=== PATIENT | male | born 1990 | race Caucasian/White ===

== ENCOUNTER 2021-01-19 05:54 | Inpatient (IN) ==
[2021-01-19] MEDS ORDERED: 0.9 % SODIUM CHLORIDE 1,000 ML IV ONE ×2 (06:00→10:23)
[2021-01-19] MEDS ORDERED: DILTIAZEM 25 MG/5 ML VIAL IV ONE ×2 (06:08→06:09)
[2021-01-19] MEDS ORDERED: DILTIAZEM 125 MG in DEXTROSE 5% IN WATER 100 ML IV SCH ×2 (06:15)
[2021-01-19] MEDS ORDERED: NALOXONE HCL 0.4 MG/ML VIAL IV ONE ×2 (06:26→06:47)
[2021-01-19] MEDS ORDERED: methylPREDNISolone SOD SUCC 125 MG/2 ML VIAL IV ONE (06:33)
[2021-01-19] MEDS ORDERED: IPRATROPIUM/ALBUTEROL 3 ML AMPUL.NEB NEB ONE ×2 (06:33→06:34)
--- NOTE | 2021-01-19 06:33 | Emergency Department Note ---
Overdose HPI General Chief Complaint: Overdose Stated Complaint: Overdose, SOB Time Seen by Provider: 01/19/21 06:00 Source: patient and EMS Mode of arrival: EMS Limitations: no limitations History of Present Illness HPI Narrative: Narrative: Presents to T2 via EMS for evaluation of altered mental status and suspected overdose. It is reported by EMS that the patient has a history of opiate abuse in the past. EMS reports that the patient had been reportedly clean for 7 years but his suspected that he may have been using recently. The patient was found with a decreased level of consciousness, agonal respirations facedown in vomit. The patient's rolled the patient over and started chest compressions and called EMS. On EMS arrival the patient was noted to be having agonal respirations. He was assisted via BVM and the patient was given intranasal Narcan and had rapid improvement in mental status. The patient was also reported to be in atrial fibrillation on the monitor. EMS reports they found to vials which appeared to have some residual substance in them. On arrival to the emergency department the patient is awake and alert. He does not provide any significant additional history. Denies chest pain or shortness of breath. He does report a history of asthma. Related Data Home Medications Medication Instructions Recorded Confirmed No Known Home Meds 06/11/20 07/16/20 Allergies Allergy/AdvReac Type Severity Reaction Status Date / Time iodine [IODINE] Allergy Unknown RASH Verified 01/19/21 06:04 penicillin G [PENICILLIN G] Allergy Unknown UNKNOWN Verified 01/19/21 06:04 Review of Systems ROS ROS Narrative: Narrative: Limitations: ROS unobtainable due to patients medical condition [facility], [facility] Narrative Patient History Narrative: Narrative: Medical/Surgical/Family History All Active Problems (Updated 01/19/21 @ 07:03 by Keven Preciado MD) URI, acute (Acute) Tonsillitis (Acute) Nausea & vomiting (Acute) Coffee ground emesis (Acute) Methadone overdose (Acute) Atrial fibrillation with rapid ventricular response (Acute) Hypoxia (Acute) Acute diarrhea (Acute) Upper respiratory infection (Acute) Sprain of foot, left (Acute) Sprain of ankle, left (Acute) Nausea, vomiting and diarrhea (Acute) Epigastric abdominal pain (Acute) Bilateral conjunctivitis (Acute) Viral syndrome (Acute) Social History Smoking Status: Current every day smoker Alcohol Intake Frequency: holiday/special occasion only Substance Use: does not use Exam Narrative Narrative: Narrative: General Limitations: no limitations General appearance: Present alert and in distress Head Head: Present atraumatic, normocephalic and normal inspection Eye Eye: Present normal appearance and EOMI; Absent conjunctival injection ENT ENT: Present normal exam and mucous membranes moist Neck Neck: Present normal inspection and trachea midline Respiratory Respiratory: Present normal lung sounds bilaterally; Absent respiratory distress Cardiovascular Cardiovascular: Present tachycardia, irregular rhythm and normal heart sounds Adbominal Abdominal: Present soft; Absent distention, tenderness, guarding and rebound Extremities Extremities: Present normal inspection, normal capillary refill (Moderate delayed capillary refill) and cyanosis; Absent tenderness Back Back: Present normal inspection; Absent tenderness Neurological Neurological: Present alert, oriented X3 and CN II-XII intact; Absent motor sensory deficit Psychiatric Psychiatric: Present normal affect and normal mood Skin Skin: Present warm (WNL) and dry; Absent rash Course Vital Signs Vital signs: Vital Signs Temperature 95.6 F L 01/19/21 05:55 Pulse Rate 178 H 01/19/21 05:55 Respiratory Rate 22 01/19/21 05:55 Blood Pressure 130/110 01/19/21 05:55 Pulse Oximetry (%) 56 L 01/19/21 05:55 Temperature 95.6 F L 01/19/21 05:55 Pulse Rate 124 H 01/19/21 06:22 Respiratory Rate 15 01/19/21 06:22 Blood Pressure 133/73 01/19/21 06:22 Pulse Oximetry (%) 95 01/19/21 06:16 MDM MDM Narrative Medical decision making narrative: Narrative: Lab Data Lab results reviewed: Yes I reviewed the patient's lab results. Radiology Data Radiology results reviewed: Yes I reviewed the patient's radiology results. EKG Data EKG #1: EKG attestation: Yes I reviewed and interpreted this EKG., Yes There are no EKG findings of acute coronary syndrome and Yes This EKG will be read by medical assistant prn EKG results narrative: Atrial fibrillation with a rapid ventricular response, rate 159, normal ST segments, no ectopy, normal QRS Rhythm Strip Data Rhythm Strip Rate: 155 Interpretation: Narrow complex tachycardia, atrial fibrillation Pulse Oximetry Data Pulse Ox %: 56 Interpretation: Hypoxia CC TIME Critical Care Time Critical Care Time: Yes Total Critical Care Time: 60 Attestation: Approximately 60 minutes of critical care time was used in order to assess and manage the high probability of imminent or life threatening deterioration which required my highest level of preparedness and interventions with frequent patient assessments. This time is excluding time spent on separately billable procedures. On arrival the patient was awake and alert, he was conversive. The patient was noted to be in a narrow complex tachycardia with irregularity consistent with atrial fibrillation. EKG was obtained and confirmed this. The patient was also noted to have poor peripheral circulation and initial pulse oximetry was 56%. The patient was placed on a nonrebreather and his pulse oximetry did improve somewhat. The patient's atrial fibrillation was treated with a single dose of IV Cardizem 20 mg. The patient immediately converted to a normal sinus rhythm in the 80s to 90s. A portable chest x-ray was obtained. There is no focal consolidation. There is increased lung markings which may represent pulmonary edema versus technique. ABG was obtained which did show a pH of 7.18, PCO2 of 58 and a PO2 of 52. Blood sugar was obtained and was noted to be 260. The patient was given an additional dose of Narcan 2 mg IV. His pulse oximetry did improve to the mid 90s. Shortly after the patient did report he was having increased difficulty breathing. On repeat exam the patient is noted to be having mild to moderate wheezing diffusely. The patient does have a history of asthma and was given a single dose of DuoNeb treatment and Solu-Medrol. Patient's pulse oximetry did drop into the mid 80s while on the nebulized treatment and simple facemask. And he was again placed on the nonrebreather. He was given an additional dose of Narcan 2 mg IV. It is at this time the patient admits to using 60 mg of crushed methadone which he snorted about midnight last night. At 0700 I have passed the patient's care to the oncoming physician. They will continue to manage the patient, follow-up on diagnostic studies ordered and disposition the patient. Discharge Plan Patient/Caregiver Discharge Instructions Pt seen by POWER TRUCK DRIVER/PA only: No Clinical Impression: Methadone overdose, Atrial fibrillation with rapid ventricular response, Hypoxia Patient Disposition: Still a Patient Follow up with: No,PCP [Primary Care Provider] - Prescriptions: No Action No Known Home Meds RF: 0
--- NOTE | 2021-01-19 07:33 | Emergency Department Note ---
Overdose HPI General Chief Complaint: Overdose Stated Complaint: Overdose, SOB Time Seen by Provider: 01/19/21 06:00 Source: patient and EMS Mode of arrival: EMS Limitations: no limitations History of Present Illness HPI Narrative: Narrative: Related Data Home Medications Medication Instructions Recorded Confirmed No Known Home Meds 06/11/20 07/16/20 Allergies Allergy/AdvReac Type Severity Reaction Status Date / Time iodine [IODINE] Allergy Unknown RASH Verified 01/19/21 06:04 penicillin G [PENICILLIN G] Allergy Unknown UNKNOWN Verified 01/19/21 06:04 Review of Systems ROS ROS Narrative: Narrative: PFSH Narrative Patient History Narrative: Narrative: Medical/Surgical/Family History All Active Problems (Updated 01/19/21 @ 08:33 by Kaden Srivastava DO) URI, acute (Acute) Tonsillitis (Acute) Nausea & vomiting (Acute) Coffee ground emesis (Acute) Methadone overdose (Acute) Atrial fibrillation with rapid ventricular response (Acute) Hypoxia (Acute) Acute non-cardiogenic pulmonary edema (Acute) Acute diarrhea (Acute) Upper respiratory infection (Acute) Sprain of foot, left (Acute) Sprain of ankle, left (Acute) Nausea, vomiting and diarrhea (Acute) Epigastric abdominal pain (Acute) Bilateral conjunctivitis (Acute) Viral syndrome (Acute) Social History Smoking Status: Current every day smoker Alcohol Intake Frequency: holiday/special occasion only Substance Use: does not use Exam Narrative Narrative: Narrative: General Limitations: no limitations Course Course Course Narrative: I assumed care from Dr. Preciado at the change of shift. We evaluate the patient together at bedside at 7 AM. He is tachypneic and complaining of shortness of breath while on a nonrebreather. He is awake and alert and answers questions appropriately Reevaluation(s) Reevaluation #1: I discussed the need for improvement in oxygen saturation with the patient and he is agreeable with the plan to attempt proning. He was having difficulty emptying his bladder so Tineo catheter has been inserted with good flow of clear yellow urine. With proning initially, his heart rate has decreased and his oxygen saturation is steadily improving we will continue to monitor closely. I did discuss his clinical situation and the possible need for intubation or transfer with his Ilda, who will come to the hospital Time: 07:33 Vital Signs Vital signs: Vital Signs Temperature 95.6 F L 01/19/21 05:55 Pulse Rate 178 H 01/19/21 05:55 Respiratory Rate 22 01/19/21 05:55 Blood Pressure 130/110 01/19/21 05:55 Pulse Oximetry (%) 56 L 01/19/21 05:55 Temperature 95.6 F L 01/19/21 05:55 Pulse Rate 110 H 01/19/21 08:16 Respiratory Rate 15 01/19/21 08:16 Blood Pressure 125/85 01/19/21 08:16 Pulse Oximetry (%) 93 01/19/21 08:16 MDM MDM Narrative Medical decision making narrative: Patient continued to improve with proning and was gradually titrated down to 5 L of oxygen via nasal cannula. I reassessed him several times. He is remained awake and alert throughout his emergency department stay and notes that his shortness of breath has significantly improve d while lying prone. I reviewed his labs. He does have a elevated lactate and significant leukocytosis. Patient says he was completely in his usual state of health yesterday and had no preceding symptoms such as fever abdominal pain vomiting or diarrhea. His confirms this. Given that and the clinical context in which he presented I do not think his leukocytosis and lactic acidosis are due to severe sepsis. Out of an abundance of caution that there may be occult bacterial infection contributing to his leukocytosis I did give him IV Rocephin. I am not giving him 30 mL/kg gram of crystalloids because he is in pulmonary edema following the Narcan reversal and I think this would be de trimental to his health. I discussed my clinical impression with the patient and his and they are agreeable with the plan for admission. I discussed the patient's history examination and diagnostic findings with Dr. Madrigal, who agrees with the plan of care and accepts admission. Critical care time I provided at least 45 minutes of critical care time. This was separate from any separately billable procedures. The patient was given supplemental oxygen to treat his hypoxemic respiratory failure. He was repositioned to improve his ventilation and carefully reassessed several times throughout his emergency department stay to assess for the need for escalating therapies including possib le intubation or noninvasive positive pressure ventilation. He was given IV antibiotics due to his significant leukocytosis to treat possible occult bacteremia. The patient was closely monitored for response to treatment and stability of vital signs throughout their emergency department stay. Lab Data Lab results reviewed: Yes I reviewed the patient's lab results. Result diagrams: 01/19/21 06:30 01/19/21 06:30 Labs: Lab Results 01/19/21 01/19/21 01/19/21 Range/Units 06:26 06:30 06:30 WBC 38.9 H* (4.5-11.0) K/mcL RBC 4.70 (4.50-5.90) M/mcL Hgb 13.5 (13.5-16.5) g/dL Hct 45.4 (41.0-55.0) % MCV 96.6 (80.0-100.0) fL MCH 28.7 (26.0-34.0) pg MCHC 29.7 L (31.0-36.0) g/dL RDW 13.1 (11.5-14.5) % Plt Count 392 (140-440) K/mcL MPV 9.6 (7.4-10.4) fL Neut % (Auto) 93.6 H (38.0-78.0) % Lymph % (Auto) 3.7 L (15.0-49.0) % Lake % (Auto) 1.9 (1.0-12.0) % Eos % (Auto) 0.6 (0.0-7.0) % Baso % (Auto) 0.2 (0.0-2.0) % Lymph # (Auto) 1.44 L (1.50-4.80) K/mcL Lake # (Auto) 0.74 (0.10-0.90) K/mcL Eos # (Auto) 0.22 (0.00-0.70) K/mcL Baso # (Auto) 0.09 (0.00-0.20) K/mcL Absolute Neutrophils 36.39 H (1.80-8.00) K/mcL VBG Lactic Acid (0.5-2.0) mmol/L Sodium 137 (133-145) mmol/L Potassium 4.5 (3.3-5.1) mmol/L Chloride 100 (96-108) mmol/L Carbon Dioxide 23 (22-30) mmol/L Anion Gap 14.0 (8.0-16.0) BUN 17 (6-20) mg/dL Creatinine 1.1 (0.7-1.2) mg/dL GFR Calculation 90 Glucose 166 H (70-105) mg/dL Calcium 8.8 (8.6-10.4) mg/dL Total Bilirubin 0.2 (0.1-1.0) mg/dL AST 44 H (<40) U/L ALT 29 (<40) U/L Alkaline Phosphatase 53 (39-117) U/L Troponin T (<0.03) ng/mL NT-Pro-B Natriuret Pep (<125.0) pg/mL Total Protein 7.3 (5.9-8.4) gm/dL Albumin 4.4 (3.2-5.2) gm/dL Globulin 2.9 (2.2-3.7) gm/dL Albumin/Globulin Ratio 1.5 (1.0-2.3) Urine Color Yellow Urine Appearance Hazy A (Clear) Urine pH 5.0 (5.0-9.0) Ur Specific [place] 1.020 (1.000-1.035) Urine Protein 100 A (Negative) mg/dL Urine Glucose (UA) >=500 A (Negative) mg/dL Urine Ketones Negative (Negative) mg/dL Urine Occult Blood Negative (Negative) mg/dL Urine Nitrate Negative (Negative) Urine Bilirubin Negative (Negative) mg/dL Urine Urobilinogen Negative mg/dL Ur Leukocyte Esterase Negative (Negative) /ug Urine RBC 4 H (0-3) /hpf Urine WBC 10 H (0-4) /hpf Ur Squamous Epith Cells < 1 (0-4) /hpf Ur Transition Epith Cell < 1 (0-2) /hpf Urine Bacteria None (0) /hpf Hyaline Casts 20 H (0-2) /lph Granular Casts 16 H (0-0) /lph Urine Mucus Few A (None) /hpf Ur Culture Indicated? yes Salicylates mg/dL Urine Opiates Screen Ur Opiates Confirm Ur Oxycodone Screen Urine Methadone Screen Acetaminophen ug/mL Ur Barbiturates Screen Ur Barbiturate Confirm Ur Phencyclidine Scrn Urine PCP Confirm Ur Amphetamines Screen U Amphetamines Confirm U Benzodiazepines Scrn U Benzodiazepine Confm Urine Cocaine Screen Urine Cocaine Confirm U Marijuana (THC) Screen Ethyl Alcohol (<0.010) gm/dL 01/19/21 01/19/21 01/19/21 Range/Units 06:30 06:30 06:30 WBC (4.5-11.0) K/mcL RBC (4.50-5.90) M/mcL Hgb (13.5-16.5) g/dL Hct (41.0-55.0) % MCV (80.0-100.0) fL MCH (26.0-34.0) pg MCHC (31.0-36.0) g/dL RDW (11.5-14.5) % Plt Count (140-440) K/mcL MPV (7.4-10.4) fL Neut % (Auto) (38.0-78.0) % Lymph % (Auto) (15.0-49.0) % Lake % (Auto) (1.0-12.0) % Eos % (Auto) (0.0-7.0) % Baso % (Auto) (0.0-2.0) % Lymph # (Auto) (1.50-4.80) K/mcL Lake # (Auto) (0.10-0.90) K/mcL Eos # (Auto) (0.00-0.70) K/mcL Baso # (Auto) (0.00-0.20) K/mcL Absolute Neutrophils (1.80-8.00) K/mcL VBG Lactic Acid 4.1 H* (0.5-2.0) mmol/L Sodium (133-145) mmol/L Potassium (3.3-5.1) mmol/L Chloride (96-108) mmol/L Carbon Dioxide (22-30) mmol/L Anion Gap (8.0-16.0) BUN (6-20) mg/dL Creatinine (0.7-1.2) mg/dL GFR Calculation Glucose (70-105) mg/dL Calcium (8.6-10.4) mg/dL Total Bilirubin (0.1-1.0) mg/dL AST (<40) U/L ALT (<40) U/L Alkaline Phosphatase (39-117) U/L Troponin T 0.02 (<0.03) ng/mL NT-Pro-B Natriuret Pep (<125.0) pg/mL Total Protein (5.9-8.4) gm/dL Albumin (3.2-5.2) gm/dL Globulin (2.2-3.7) gm/dL Albumin/Globulin Ratio (1.0-2.3) Urine Color Urine Appearance (Clear) Urine pH (5.0-9.0) Ur Specific [place] (1.000-1.035) Urine Protein (Negative) mg/dL Urine Glucose (UA) (Negative) mg/dL Urine Ketones (Negative) mg/dL Urine Occult Blood (Negative) mg/dL Urine Nitrate (Negative) Urine Bilirubin (Negative) mg/dL Urine Urobilinogen mg/dL Ur Leukocyte Esterase (Negative) /ug Urine RBC (0-3) /hpf Urine WBC (0-4) /hpf Ur Squamous Epith Cells (0-4) /hpf Ur Transition Epith Cell (0-2) /hpf Urine Bacteria (0) /hpf Hyaline Casts (0-2) /lph Granular Casts (0-0) /lph Urine Mucus (None) /hpf Ur Culture Indicated? Salicylates mg/dL Urine Opiates Screen None detected Ur Opiates Confirm TNP Ur Oxycodone Screen None detected Urine Methadone Screen Suspect positive A Acetaminophen ug/mL Ur Barbiturates Screen None detected Ur Barbiturate Confirm TNP Ur Phencyclidine Scrn None detected Urine PCP Confirm TNP Ur Amphetamines Screen None detected U Amphetamines Confirm TNP U Benzodiazepines Scrn None detected U Benzodiazepine Confm TNP Urine Cocaine Screen None detected Urine Cocaine Confirm TNP U Marijuana (THC) Screen Suspect positive A Ethyl Alcohol (<0.010) gm/dL 01/19/21 01/19/21 01/19/21 Range/Units 06:30 06:30 06:30 WBC (4.5-11.0) K/mcL RBC (4.50-5.90) M/mcL Hgb (13.5-16.5) g/dL Hct (41.0-55.0) % MCV (80.0-100.0) fL MCH (26.0-34.0) pg MCHC (31.0-36.0) g/dL RDW (11.5-14.5) % Plt Count (140-440) K/mcL MPV (7.4-10.4) fL Neut % (Auto) (38.0-78.0) % Lymph % (Auto) (15.0-49.0) % Lake % (Auto) (1.0-12.0) % Eos % (Auto) (0.0-7.0) % Baso % (Auto) (0.0-2.0) % Lymph # (Auto) (1.50-4.80) K/mcL Lake # (Auto) (0.10-0.90) K/mcL Eos # (Auto) (0.00-0.70) K/mcL Baso # (Auto) (0.00-0.20) K/mcL Absolute Neutrophils (1.80-8.00) K/mcL VBG Lactic Acid (0.5-2.0) mmol/L Sodium (133-145) mmol/L Potassium (3.3-5.1) mmol/L Chloride (96-108) mmol/L Carbon Dioxide (22-30) mmol/L Anion Gap (8.0-16.0) BUN (6-20) mg/dL Creatinine (0.7-1.2) mg/dL GFR Calculation Glucose (70-105) mg/dL Calcium (8.6-10.4) mg/dL Total Bilirubin (0.1-1.0) mg/dL AST (<40) U/L ALT (<40) U/L Alkaline Phosphatase (39-117) U/L Troponin T (<0.03) ng/mL NT-Pro-B Natriuret Pep 54.5 (<125.0) pg/mL Total Protein (5.9-8.4) gm/dL Albumin (3.2-5.2) gm/dL Globulin (2.2-3.7) gm/dL Albumin/Globulin Ratio (1.0-2.3) Urine Color Urine Appearance (Clear) Urine pH (5.0-9.0) Ur Specific [place] (1.000-1.035) Urine Protein (Negative) mg/dL Urine Glucose (UA) (Negative) mg/dL Urine Ketones (Negative) mg/dL Urine Occult Blood (Negative) mg/dL Urine Nitrate (Negative) Urine Bilirubin (Negative) mg/dL Urine Urobilinogen mg/dL Ur Leukocyte Esterase (Negative) /ug Urine RBC (0-3) /hpf Urine WBC (0-4) /hpf Ur Squamous Epith Cells (0-4) /hpf Ur Transition Epith Cell (0-2) /hpf Urine Bacteria (0) /hpf Hyaline Casts (0-2) /lph Granular Casts (0-0) /lph Urine Mucus (None) /hpf Ur Culture Indicated? Salicylates < 0.3 mg/dL Urine Opiates Screen Ur Opiates Confirm Ur Oxycodone Screen Urine Methadone Screen Acetaminophen < 5.0 ug/mL Ur Barbiturates Screen Ur Barbiturate Confirm Ur Phencyclidine Scrn Urine PCP Confirm Ur Amphetamines Screen U Amphetamines Confirm U Benzodiazepines Scrn U Benzodiazepine Confm Urine Cocaine Screen Urine Cocaine Confirm U Marijuana (THC) Screen Ethyl Alcohol < 0.010 (<0.010) gm/dL Discharge Plan Patient/Caregiver Discharge Instructions Pt seen by PIPE COVERER HELPER/PA only: No Clinical Impression: Methadone overdose, Atrial fibrillation with rapid ventricular response, Hypoxia, Acute non-cardiogenic pulmonary edema Patient Disposition: Xfer As Inpt ([facility]) Follow up with: No,PCP [Primary Care Provider] - Prescriptions: No Action No Known Home Meds RF: 0
[2021-01-19 07:44] LABS: Appearance,Urine HAZY (Clear); Bilirubin,Urine Negative (Negative); Color,Urine YELLOW; Culture Indicated,Urine yes; Glucose,Urine (UA) >=500 mg/dL (Negative); Ketones,Urine Negative (Negative); Leukocyte Esterase,Urine Negative /ug (Negative); Mucus,Urine FEW /hpf; Nitrate,Urine Negative (Negative); Protein,Urine 100 mg/dL (Negative); Urine Blood Negative (Negative); Urine Granular Cast 16 /lph (0-0); Urine Hyaline Cast 20 /lph (0-2); Urine RBC 4 /hpf (0-3); Urine Squamous Epithelial Cell < 1 /hpf (0-4); Urine Transitional Epi Cells < 1 /hpf (0-2); Urine WBC 10 /hpf (0-4); Urobilinogen,Urine Negative
[2021-01-19 07:46] LABS: Acetaminophen < 5.0 ug/mL; Salicylate < 0.3 mg/dL
[2021-01-19 07:47] LABS: ALT/SGPT 29 U/L (<40); AST/SGOT 44 U/L (<40); Albumin 4.4 gm/dL (3.2-5.2); Albumin/Globulin Ratio 1.5 (1.0-2.3); Alkaline Phosphatase 53 U/L (39-117); Bilirubin,Total 0.2 mg/dL (0.1-1.0); Blood Urea Nitrogen 17 mg/dL (6-20); Calcium 8.8 mg/dL (8.6-10.4); Carbon Dioxide 23 mmol/L (22-30); Chloride 100 mmol/L (96-108); Globulin 2.9 gm/dL (2.2-3.7); Glomerular Filtration Rate 90; Glucose 166 mg/dL (70-105)
[2021-01-19 07:52] LABS: Alcohol, Blood < 10.0 mg/dL; Alcohol,Blood < 0.010 gm/dL (<0.010); Basophils # (Auto) 0.09 K/mcL (0.00-0.20); Basophils % (Auto) 0.2 % (0.0-2.0); Eosinophils # (Auto) 0.22 K/mcL (0.00-0.70); Eosinophils % (Auto) 0.6 % (0.0-7.0); Hematocrit 45.4 % (41.0-55.0); Hemoglobin 13.5 g/dL (13.5-16.5); Lymphocytes # (Auto) 1.44 K/mcL (1.50-4.80); Lymphocytes % (Auto) 3.7 % (15.0-49.0); Mean Cell Volume 96.6 fL (80.0-100.0); Mean Corpuscular HGB Conc 29.7 g/dL (31.0-36.0); Mean Platelet Volume 9.6 fL (7.4-10.4); Monocytes # (Auto) 0.74 K/mcL (0.10-0.90); Monocytes % (Auto) 1.9 % (1.0-12.0); Neutrophils % (Auto) 93.6 % (38.0-78.0); Platelet Count 392 K/mcL (140-440); Red Cell Distribution Width 13.1 % (11.5-14.5); WBC 38.9 K/mcL (4.5-11.0)
[2021-01-19] MEDS ORDERED: cefTRIAXone 1 GM VIAL IV ONE (07:58)
[2021-01-19 08:01] LABS: Amphetamine Screen,Urine None detected; Barbiturate Screen,Urine None detected; Benzodiazepines Screen,Urine None detected; Cannabinoid Screen,Urine Suspect Positive; Cocaine Screen,Urine None detected; Opiate Screen,Urine None detected; Oxycodone, Urine Screen None detected; Phencyclidine Screen,Urine None detected
--- NOTE | 2021-01-19 08:24 | XRay Report ---
HISTORY: Methadone overdose, hypoxia, atrial fibrillation, shortness of breath FINDINGS: The lungs are clear. There is no pleural effusion or adenopathy. The heart size is normal and there is no congestive heart failure. There are overlying artifacts. IMPRESSION: No acute abnormality Interpreted and Authenticated by: Ludwin Palacios 01/19/21
--- NOTE | 2021-01-19 08:31 | Internal Med History&Physical ---
HPI History of Present Illness Patient information: Note initiated : 01/19/21 at 8:31 am Service Date, if different from initiated Date: [] Patient: Malcolm Ruiz a 30 y/o M admitted on for Overdose, SOB. Chief Complaint: Found unresponsive secondary to overdose History of present illness: Mr. Ruiz is a 30 year old M who lives with his and was discovered by his on the floor nearly unresponsive and agonal breathing with suspected opioid overdose. EMS was summoned and patient was started on Narcan with rapid improvement in mental status, he was brought into the ER and was in A. fib RVR responded to Cardizem. After initial resuscitation with crystalloids hospital service was consulted. Patient was noted to be profoundly hypoxic requiring 8 to 10 L oxygen/white count over 38,000. At the time of my evaluation patient is lethargic and drowsy. Currently on 8 L oxygen mask. In sinus rhythm. Was able to answer most of the question endorses to snorting 16 tabs of methadone. He remains tachycardic around 117. Repeat chest imaging shows severe bilateral aspiration pneumonitis. Antibiotics initiated, cultures drawn. Patient critically ill and admitted to ICU. No family numbers present Patient denies chest pain, fever but endorses diaphoresis/lightheadedness and shortness of breath Review of systems 10 point review system was performed and is negative except for ones discussed above PFSH PFSH All Active Problems (Updated 01/19/21 @ 08:33 by Kaden Srivastava DO) URI, acute (Acute) Tonsillitis (Acute) Nausea & vomiting (Acute) Coffee ground emesis (Acute) Methadone overdose (Acute) Atrial fibrillation with rapid ventricular response (Acute) Hypoxia (Acute) Acute non-cardiogenic pulmonary edema (Acute) Acute diarrhea (Acute) Upper respiratory infection (Acute) Sprain of foot, left (Acute) Sprain of ankle, left (Acute) Nausea, vomiting and diarrhea (Acute) Epigastric abdominal pain (Acute) Bilateral conjunctivitis (Acute) Viral syndrome (Acute) Social History alcohol intake frequency: holiday/special occasion only substance use type: does not use MEDS/ALLERGIES Home Medications and Allergies Home Medications Medication Instructions Recorded Confirmed Type No Known Home Meds 06/11/20 01/19/21 History Allergies Allergy/AdvReac Type Severity Reaction Status Date / Time iodine [IODINE] Allergy Mild RASH Verified 01/19/21 10:14 penicillin G [PENICILLIN G] Allergy Unknown Unknown Verified 01/19/21 10:13 EXAM Constitutional Vitals: Temp Pulse Resp BP Pulse Ox 95.6 F L 110 H 15 125/85 93 01/19/21 05:55 01/19/21 08:16 01/19/21 08:16 01/19/21 08:16 01/19/21 08:16 Drowsy lethargic and short of breath Head normocephalic Oral cavity moist No ear or nose discharge Eye no subconjunctival pallor, movement symmetrical S1-S2 occasionally irregular, tachycardia Labored breathing on 8 to 10 L oxygen Nondistended nontender abdomen Lower extremity no cyanosis clubbing or joint swelling Skin no suspicious lesion Psych anxious but no hallucination Neuro normal higher function on limited neuro exam DATA Data Completed and Pending Labs: Labs from last 24 hours 01/19/21 01/19/21 01/19/21 06:30 06:30 06:30 WBC RBC Hgb Hct MCV MCH MCHC RDW Plt Count MPV Neut % (Auto) Lymph % (Auto) Cross % (Auto) Eos % (Auto) Baso % (Auto) Lymph # (Auto) [place] # (Auto) Eos # (Auto) Baso # (Auto) Absolute Neutrophils VBG Lactic Acid Sodium Potassium Chloride Carbon Dioxide Anion Gap BUN Creatinine GFR Calculation Glucose Calcium Total Bilirubin AST ALT Alkaline Phosphatase Troponin T NT-Pro-B Natriuret Pep 54.5 Total Protein Albumin Globulin Albumin/Globulin Ratio Urine Color Urine Appearance Urine pH Ur Specific [place] Urine Protein Urine Glucose (UA) Urine Ketones Urine Occult Blood Urine Nitrate Urine Bilirubin Urine Urobilinogen Ur Leukocyte Esterase Urine RBC Urine WBC Ur Squamous Epith Cells Ur Transition Epith Cell Urine Bacteria Hyaline Casts Granular Casts Urine Mucus Ur Culture Indicated? Salicylates < 0.3 Urine Opiates Screen Ur Opiates Confirm Ur Oxycodone Screen Urine Methadone Screen Ur Methadone Confirm Acetaminophen < 5.0 Ur Barbiturates Screen Ur Barbiturate Confirm Ur Phencyclidine Scrn Urine PCP Confirm Ur Amphetamines Screen U Amphetamines Confirm U Benzodiazepines Scrn U Benzodiazepine Confm Urine Cocaine Screen Urine Cocaine Confirm U Cannabinoids Confirm U Marijuana (THC) Screen Ethyl Alcohol < 0.010 01/19/21 01/19/21 01/19/21 06:30 06:30 06:30 WBC RBC Hgb Hct MCV MCH MCHC RDW Plt Count MPV Neut % (Auto) Lymph % (Auto) Cross % (Auto) Eos % (Auto) Baso % (Auto) Lymph # (Auto) [place] # (Auto) Eos # (Auto) Baso # (Auto) Absolute Neutrophils VBG Lactic Acid 4.1 H* Sodium Potassium Chloride Carbon Dioxide Anion Gap BUN Creatinine GFR Calculation Glucose Calcium Total Bilirubin AST ALT Alkaline Phosphatase Troponin T 0.02 NT-Pro-B Natriuret Pep Total Protein Albumin Globulin Albumin/Globulin Ratio Urine Color Urine Appearance Urine pH Ur Specific [place] Urine Protein Urine Glucose (UA) Urine Ketones Urine Occult Blood Urine Nitrate Urine Bilirubin Urine Urobilinogen Ur Leukocyte Esterase Urine RBC Urine WBC Ur Squamous Epith Cells Ur Transition Epith Cell Urine Bacteria Hyaline Casts Granular Casts Urine Mucus Ur Culture Indicated? Salicylates Urine Opiates Screen None detected Ur Opiates Confirm TNP Ur Oxycodone Screen None detected Urine Methadone Screen Suspect positive A Ur Methadone Confirm Pending Acetaminophen Ur Barbiturates Screen None detected Ur Barbiturate Confirm TNP Ur Phencyclidine Scrn None detected Urine PCP Confirm TNP Ur Amphetamines Screen None detected U Amphetamines Confirm TNP U Benzodiazepines Scrn None detected U Benzodiazepine Confm TNP Urine Cocaine Screen None detected Urine Cocaine Confirm TNP U Cannabinoids Confirm Pending U Marijuana (THC) Screen Suspect positive A Ethyl Alcohol 01/19/21 01/19/21 01/19/21 06:30 06:30 06:26 WBC 38.9 H* RBC 4.70 Hgb 13.5 Hct 45.4 MCV 96.6 MCH 28.7 MCHC 29.7 L RDW 13.1 Plt Count 392 MPV 9.6 Neut % (Auto) 93.6 H Lymph % (Auto) 3.7 L Cross % (Auto) 1.9 Eos % (Auto) 0.6 Baso % (Auto) 0.2 Lymph # (Auto) 1.44 L Cross # (Auto) 0.74 Eos # (Auto) 0.22 Baso # (Auto) 0.09 Absolute Neutrophils 36.39 H VBG Lactic Acid Sodium 137 Potassium 4.5 Chloride 100 Carbon Dioxide 23 Anion Gap 14.0 BUN 17 Creatinine 1.1 GFR Calculation 90 Glucose 166 H Calcium 8.8 Total Bilirubin 0.2 AST 44 H ALT 29 Alkaline Phosphatase 53 Troponin T NT-Pro-B Natriuret Pep Total Protein 7.3 Albumin 4.4 Globulin 2.9 Albumin/Globulin Ratio 1.5 Urine Color Yellow Urine Appearance Hazy A Urine pH 5.0 Ur Specific [place] 1.020 Urine Protein 100 A Urine Glucose (UA) >=500 A Urine Ketones Negative Urine Occult Blood Negative Urine Nitrate Negative Urine Bilirubin Negative Urine Urobilinogen Negative Ur Leukocyte Esterase Negative Urine RBC 4 H Urine WBC 10 H Ur Squamous Epith Cells < 1 Ur Transition Epith Cell < 1 Urine Bacteria None Hyaline Casts 20 H Granular Casts 16 H Urine Mucus Few A Ur Culture Indicated? yes Salicylates Urine Opiates Screen Ur Opiates Confirm Ur Oxycodone Screen Urine Methadone Screen Ur Methadone Confirm Acetaminophen Ur Barbiturates Screen Ur Barbiturate Confirm Ur Phencyclidine Scrn Urine PCP Confirm Ur Amphetamines Screen U Amphetamines Confirm U Benzodiazepines Scrn U Benzodiazepine Confm Urine Cocaine Screen Urine Cocaine Confirm U Cannabinoids Confirm U Marijuana (THC) Screen Ethyl Alcohol A/P Narrative A/P Narrative: * Opioid overdose-continue Narcan as indicated, monitor airway * Multifocal pneumonia suspected Covid 19 on with aspiration pneumonia. Start empiric antibiotic coverage/check Covid PCR. * Severe sepsis with elevated lactate and white count 39,000 secondary to pneumonia * Prophylaxis Heparin Plan * ICU admission * Intubate if airway compromise * Broad antibiotic coverage/sepsis management guidelines * Aspiration precaution * Narcan as indicated Time Spent With Patient Time: Critical care time 45 minutes on management of proximal respiratory failure/opioid overdose in addition to time spent on history and physical
[2021-01-19] MEDS ORDERED: ONDANSETRON 4 MG ODT TABLET SL PRN (09:31)
[2021-01-19] MEDS ORDERED: ONDANSETRON 4 MG/2 ML VIAL IV PRN (09:31)
[2021-01-19] MEDS ORDERED: NALOXONE HCL 0.4 MG/ML VIAL IV PRN (09:31)
[2021-01-19] MEDS ORDERED: POTASSIUM CHLORIDE 20 MEQ PACKET PO PRN (09:31)
[2021-01-19] MEDS ORDERED: guaiFENesin/CODEINE 10 ML UDC PO PRN (09:31)
[2021-01-19] MEDS ORDERED: MAGNESIUM SULFATE 2 GM/50 ML BAG IV PRN (09:31)
[2021-01-19] MEDS ORDERED: BISACODYL 10 MG SUPP.RECT PR PRN (09:31)
[2021-01-19] MEDS ORDERED: POLYETHYLENE GLYCOL 3350 17 GM PACKET PO PRN (09:31)
[2021-01-19] MEDS ORDERED: NEUTRA PHOS 1 PACKET PO PRN (09:31)
[2021-01-19] MEDS ORDERED: ACETAMINOPHEN 325 MG TABLET PO PRN (09:31)
[2021-01-19] MEDS ORDERED: POTASSIUM CHLORIDE 40 MEQ in DEXTROSE 5% IN WATER 500 ML IV PRN (09:31)
[2021-01-19] MEDS ORDERED: ACETAMINOPHEN 650 MG/65 ML BAG IV PRN (09:31)
[2021-01-19] MEDS ORDERED: MELATONIN 3 MG TABLET PO PRN (09:31)
[2021-01-19] MEDS: MULTIVIT,THER IRON,CA,FA & MIN 1 TABLET PO SCH (10:20)
[2021-01-19] MEDS: DOCUSATE SODIUM 100 MG CAPSULE PO SCH ×2 (10:21→21:48)
[2021-01-19] MEDS: HEPARIN 5,000 UNIT/ML VIAL SQ SCH ×2 (10:22→21:48)
--- NOTE | 2021-01-19 10:27 | XRay Report ---
HISTORY: Methadone overdose with aspiration and hypoxia FINDINGS: Severe alveolar infiltrates have developed throughout both lungs with greatest consolidation overlying the right lower hilum. These are new since the earlier x-ray done on the same date at 5:53 AM. There is no pleural effusion or pneumothorax. The heart size is normal. IMPRESSION: Severe bilateral aspiration pneumonia Interpreted and Authenticated by: Ludwin Palacios 01/19/21
[2021-01-19] MEDS: 0.9 % SODIUM CHLORIDE 1,000 ML IV SCH ×2 (11:47→21:49)
[2021-01-19] MEDS: PIPERACILLIN SODIUM/TAZOBACTAM 3.375 GM in DEXTROSE 5% IN WATER 50 ML IV SCH ×2 (11:51→17:25)
[2021-01-19] MEDS: 0.9 % SODIUM CHLORIDE 10 ML SYRINGE IV SCH (13:39)
[2021-01-19] MEDS ORDERED: SENNOSIDES/DOCUSATE SODIUM 1 TAB TABLET PO SCH (21:00)
[2021-01-20] MEDS: 0.9 % SODIUM CHLORIDE 10 ML SYRINGE IV SCH ×4 (00:09→20:11)
[2021-01-20] MEDS: PIPERACILLIN SODIUM/TAZOBACTAM 3.375 GM in DEXTROSE 5% IN WATER 50 ML IV SCH ×5 (00:10→23:54)
[2021-01-20] MEDS: 0.9 % SODIUM CHLORIDE 1,000 ML IV SCH ×3 (04:20→21:06)
[2021-01-20 05:53] LABS: Basophils # (Auto) 0.01 K/mcL (0.00-0.20); Basophils % (Auto) 0.1 % (0.0-2.0); Eosinophils # (Auto) 0.03 K/mcL (0.00-0.70); Eosinophils % (Auto) 0.2 % (0.0-7.0); Hemoglobin 11.8 g/dL (13.5-16.5); Lymphocytes # (Auto) 1.68 K/mcL (1.50-4.80); Mean Cell Volume 89.4 fL (80.0-100.0); Mean Corpuscular HGB Conc 31.9 g/dL (31.0-36.0); Mean Platelet Volume 9.8 fL (7.4-10.4); Monocytes # (Auto) 0.91 K/mcL (0.10-0.90); Monocytes % (Auto) 5.9 % (1.0-12.0); Neutrophils % (Auto) 82.8 % (38.0-78.0); Platelet Count 296 K/mcL (140-440); RBC 4.14 M/mcL (4.50-5.90); Red Cell Distribution Width 13.5 % (11.5-14.5); WBC 15.3 K/mcL (4.5-11.0)
[2021-01-20 06:10] LABS: ALT/SGPT 22 U/L (<40); AST/SGOT 25 U/L (<40); Albumin 3.6 gm/dL (3.2-5.2); Albumin/Globulin Ratio 1.4 (1.0-2.3); Alkaline Phosphatase 38 U/L (39-117); Bilirubin,Direct < 0.2 mg/dL (0-0.3); Bilirubin,Total 0.2 mg/dL (0.1-1.0); Blood Urea Nitrogen 14 mg/dL (6-20); Calcium 8.6 mg/dL (8.6-10.4); Carbon Dioxide 29 mmol/L (22-30); Chloride 102 mmol/L (96-108); Globulin 2.5 gm/dL (2.2-3.7); Glomerular Filtration Rate 121; Glucose 110 mg/dL (70-105); Lactate Dehydrogenase 235 U/L (135-225); Phosphorous 3.3 mg/dL (2.5-4.5); Triglycerides 89 mg/dL (<150); Uric Acid 4.9 mg/dL (2.5-8.0)
[2021-01-20] MEDS: HEPARIN 5,000 UNIT/ML VIAL SQ SCH ×2 (09:15→20:10)
[2021-01-20] MEDS: DOCUSATE SODIUM 100 MG CAPSULE PO SCH ×2 (09:15→20:09)
[2021-01-20] MEDS: MULTIVIT,THER IRON,CA,FA & MIN 1 TABLET PO SCH (09:15)
--- NOTE | 2021-01-20 09:15 | Internal Med Progress Note ---
SUBJECTIVE Subjective Patient information: Note initiated : 01/20/21 at 9:12 am Service Date, if different from initiated Date: [] Patient: Malcolm Ruiz a 30 y/o M admitted on 01/19/21 for Overdose, SOB. Chief Complaint: [] Interval history: Mr. Ruiz is a 30 year old M who lives with his and was discovered by his on the floor nearly unresponsive and agonal breathing with suspected opioid overdose. EMS was summoned and patient was started on Narcan with rapid improvement in mental status, he was brought into the ER and was in A. fib RVR responded to Cardizem. After initial resuscitation with crystalloids hospital service was consulted. Patient was noted to be profoundly hypoxic requiring 8 to 10 L oxygen/white count over 38,000. At the time of my evaluation patient is lethargic and drowsy. Currently on 8 L oxygen mask. In sinus rhythm. Was able to answer most of the question endorses to snorting 16 tabs of methadone. He remains tachycardic around 117. Repeat chest imaging shows severe bilateral aspiration pneumonitis. Antibiotics initiated, cultures drawn. Patient critically ill and admitted to ICU. No family numbers present Patient denies chest pain, fever but endorses diaphoresis/lightheadedness and shortness of breath 01/20 patient clinically improving. Improved lactate/white count. Hypoxia improving now 4 L oxygen this morning. Interval chest imaging bilateral pneumonia. Counseled on opioid cessation. Transfer to medical floor Constitutional Vitals: Vital Signs Temp Pulse Resp BP Pulse Ox 98.9 F 91 H 17 127/78 97 01/20/21 03:01 01/20/21 07:01 01/20/21 07:01 01/20/21 07:01 01/20/21 07:01 Period Temp Pulse Resp BP Sys/August Pulse Ox Last 24 Hr 97 F-98.9 F 91-111 11-23 93-150/52-98 88-98 Intake and Output 01/19/21 01/20/21 01/20/21 21:59 05:59 13:59 Intake Total 1650 50 50 Output Total 1225 900 Balance 425 -850 50 Weight 104.78 kg Drowsy but respond to commands Nonlabored breathing On 4 L oxygen No lymphedema Intake & Output: Intake & Output 05/10/21 05/11/21 05/11/21 21:59 05:59 13:59 Intake Total 1650 50 50 Output Total 1225 900 Balance 425 -850 50 Weight 104.78 kg Intake: IV 1050 50 50 Sodium Chloride 0.9% 1,000 ml @ 1000 100 mls/hr IV .Q10H [facility] Rx#: [id number] Zosyn 3.375 gm In Dextrose 5% 50 50 50 in Water 50 ml @ 100 mls/hr IV Q6H [facility] Rx#:[id number] Oral 600 Output: Urine Catheter Amount 425 900 Void Amount 800 Other: Meal Dinner Percent of Meal Consumed 100% Urine Appearance Clear Urine Color Bright Yellow Bright Yellow OBJ DATA Labs CBC & Chem 7: 01/20/21 03:53 01/20/21 03:53 Labs: Abnormal Lab Results 01/20/21 01/20/21 01/19/21 03:53 03:53 06:30 WBC 15.3 H RBC 4.14 L Hgb 11.8 L Hct 37.0 L MCHC Neut % (Auto) 82.8 H Lymph % (Auto) 11.0 L Lymph # (Auto) [place] # (Auto) 0.91 H Absolute Neutrophils 12.67 H VBG Lactic Acid Anion Gap 5.0 L Glucose 110 H AST Alkaline Phosphatase 38 L Lactate Dehydrogenase 235 H Urine Appearance Urine Protein Urine Glucose (UA) Urine RBC Urine WBC Hyaline Casts Granular Casts Urine Mucus Urine Methadone Screen Suspect positive A U Marijuana (THC) Screen Suspect positive A 01/19/21 01/19/21 01/19/21 06:30 06:30 06:30 WBC 38.9 H* RBC Hgb Hct MCHC 29.7 L Neut % (Auto) 93.6 H Lymph % (Auto) 3.7 L Lymph # (Auto) 1.44 L [place] # (Auto) Absolute Neutrophils 36.39 H VBG Lactic Acid 4.1 H* Anion Gap Glucose 166 H AST 44 H Alkaline Phosphatase Lactate Dehydrogenase Urine Appearance Urine Protein Urine Glucose (UA) Urine RBC Urine WBC Hyaline Casts Granular Casts Urine Mucus Urine Methadone Screen U Marijuana (THC) Screen 01/19/21 06:26 WBC RBC Hgb Hct MCHC Neut % (Auto) Lymph % (Auto) Lymph # (Auto) [place] # (Auto) Absolute Neutrophils VBG Lactic Acid Anion Gap Glucose AST Alkaline Phosphatase Lactate Dehydrogenase Urine Appearance Hazy A Urine Protein 100 A Urine Glucose (UA) >=500 A Urine RBC 4 H Urine WBC 10 H Hyaline Casts 20 H Granular Casts 16 H Urine Mucus Few A Urine Methadone Screen U Marijuana (THC) Screen Meds: Medications Acetaminophen (Acetaminophen 325 Mg Tablet) 650 mg PO Q4-6HP PRN; Protocol PRN Reason: Per Pain Protocol/Fever > 101 Bisacodyl (Bisacodyl 10 Mg Supp.Rect) 10 mg VT Q2-3DAYS PRN PRN Reason: Constipation Docusate Sodium (Docusate Sodium 100 Mg Capsule) 100 mg PO BID [facility] Last Admin: 01/19/21 21:48 Dose: 100 mg Documented by: Guaifenesin/Codeine Phosphate (Guaifenesin/Codeine 10 Ml Udc) 10 ml PO Q4HP PRN PRN Reason: Cough Heparin Sodium (Porcine) (Heparin 5,000 Unit/Ml Vial) 5,000 unit SQ Q12 [facility] Last Admin: 01/19/21 21:48 Dose: 5,000 unit Documented by: Potassium Chloride 40 meq/ (Dextrose) 520 mls @ 130 mls/hr IV UD PRN PRN Reason: K+ = or < 3.5 Acetaminophen (Ofirmev) 650 mg in 65 mls @ 130 mls/hr IV Q6HP PRN; Protocol PRN Reason: Per Pain Protocol/Fever > 101 Magnesium Sulfate (Magnesium Sulfate) 2 gm in 50 mls @ 50 mls/hr IV UD PRN PRN Reason: MG = or < 1.7 Sodium Chloride (Sodium Chloride 0.9%) 1,000 mls @ 100 mls/hr IV .Q10H [facility] Last Admin: 01/20/21 04:20 Dose: Not Given Documented by: Piperacillin Sod/Tazobactam (Sod 3.375 gm/ Dextrose) 50 mls @ 100 mls/hr IV Q6H [facility]; Protocol Last Infusion: 01/20/21 06:37 Dose: Infused Documented by: Iron Carb/Multivit/[place]/Folic Acid (Multivit,Ther Iron,Ca,Fa & Min 1 Tablet) 1 tab PO DAILY [facility] Last Admin: 01/19/21 10:20 Dose: 1 tab Documented by: Melatonin (Melatonin 3 Mg Tablet) 3 mg PO HSP PRN PRN Reason: Insomnia Last Admin: 01/19/21 21:53 Dose: 3 mg Documented by: Naloxone HCl (Naloxone Hcl 0.4 Mg/Ml Vial) 0.1 mg IV Q1HP PRN PRN Reason: Opiate Reversal Last Admin: 01/19/21 10:21 Dose: 0.1 mg Documented by: Ondansetron HCl (Ondansetron 4 Mg Odt Tablet) 4 mg SL Q4-6HP PRN; Protocol PRN Reason: Nausea And Vomiting Ondansetron HCl (Ondansetron 4 Mg/2 Ml Vial) 4 mg IV Q4-6HP PRN; Protocol PRN Reason: Nausea And Vomiting Polyethylene Glycol (Polyethylene Glycol 3350 17 Gm Packet) 17 gm PO DAILYP PRN PRN Reason: Constipation Potassium Chloride (Potassium Chloride 20 Meq Packet) 40 meq PO DAILYP PRN PRN Reason: K+ < 3.5 Potassium/Phosphorus/Sodium (Neutra Phos 1 Packet) 2 packet PO DAILY PRN PRN Reason: PHOS <2.5 Senna/Docusate Sodium (Sennosides/Docusate Sodium 1 Tab Tablet) 1 tab PO HS [facility] Last Admin: 01/19/21 21:48 Dose: 1 tab Documented by: Sodium Chloride (0.9 % Sodium Chloride 10 Ml Syringe) 10 ml IV Q8 [facility] Last Admin: 01/20/21 05:43 Dose: Not Given Documented by: A/P Narrative A/P Narrative: * Opioid overdose-gradually improved. Remains drowsy but no signs of respiratory depression. Status post Narcan. Counseled for cessation * Multifocal pneumonia suspected Covid 19 on with aspiration pneumonia. Clinically improving on antibiotic coverage/supportive treatment * Acute hypoxic respiratory failure now on 4 L oxygen. Gradually improving secondary to multifocal chest infiltrates * Severe sepsis clinically improving with white count down from 10,002 15.3 * Prophylaxis Heparin Plan * Transfer to medical floor * Continue antibiotic/aspiration precautions * wean oxygen as tolerated * Nutrition support * Case management to coordinate outpatient drug rehab resources and appointments Time Spent With Patient Time: Total time spent is greater than 50% in coordination of care (as documented) at patient's floor/unit and/or counseling patient: QUALITY VTE Deep Vein Thrombosis/Pulmonary Embolism Present on Admission: No
[2021-01-20] MEDS ORDERED: ACETAMINOPHEN 650 MG/65 ML BAG IV PRN (09:22)
[2021-01-20] MEDS ORDERED: POLYETHYLENE GLYCOL 3350 17 GM PACKET PO PRN (09:22)
[2021-01-20] MEDS ORDERED: POTASSIUM CHLORIDE 20 MEQ PACKET PO PRN (09:22)
[2021-01-20] MEDS ORDERED: NALOXONE HCL 0.4 MG/ML VIAL IV PRN (09:22)
[2021-01-20] MEDS ORDERED: ONDANSETRON 4 MG ODT TABLET SL PRN (09:22)
[2021-01-20] MEDS ORDERED: NEUTRA PHOS 1 PACKET PO PRN (09:22)
[2021-01-20] MEDS ORDERED: ACETAMINOPHEN 325 MG TABLET PO PRN (09:22)
[2021-01-20] MEDS ORDERED: ONDANSETRON 4 MG/2 ML VIAL IV PRN (09:22)
[2021-01-20] MEDS ORDERED: guaiFENesin/CODEINE 10 ML UDC PO PRN (09:22)
[2021-01-20] MEDS ORDERED: POTASSIUM CHLORIDE 40 MEQ in DEXTROSE 5% IN WATER 500 ML IV PRN (09:22)
[2021-01-20] MEDS ORDERED: MELATONIN 3 MG TABLET PO PRN (09:22)
[2021-01-20] MEDS ORDERED: MAGNESIUM SULFATE 2 GM/50 ML BAG IV PRN (09:22)
[2021-01-20] MEDS ORDERED: BISACODYL 10 MG SUPP.RECT PR PRN (09:22)
--- NOTE | 2021-01-20 13:33 | Internal Med Progress Note ---
SUBJECTIVE Subjective Patient information: Note initiated : 01/21/21 at 1:28 pm Service Date, if different from initiated Date: [] Patient: Malcolm Ruiz 30 y/o M admitted on 01/19/21 for Overdose, SOB. Chief Complaint: [] Interval history: Mr. Ruiz is a 30 year old M who lives with his and was discovered by his on the floor nearly unresponsive and agonal breathing with suspected opioid overdose. EMS was summoned and patient was started on Narcan with rapid improvement in mental status, he was brought into the ER and was in A. fib RVR responded to Cardizem. After initial resuscitation with crystalloids hospital service was consulted. Patient was noted to be profoundly hypoxic requiring 8 to 10 L oxygen/white count over 38,000. At the time of my evaluation patient is lethargic and drowsy. Currently on 8 L oxygen mask. In sinus rhythm. Was able to answer most of the question endorses to snorting 16 tabs of methadone. He remains tachycardic around 117. Repeat chest imaging shows severe bilateral aspiration pneumonitis. Antibiotics initiated, cultures drawn. Patient critically ill and admitted to ICU. No family numbers present Patient denies chest pain, fever but endorses diaphoresis/lightheadedness and shortness of breath 01/20 patient clinically improving. Improved lactate/white count. Hypoxia improving now 4 L oxygen this morning. Interval chest imaging bilateral pneumonia. Counseled on opioid cessation. Transfer to medical floor. Head: Atraumatic, normal inspection. Eyes: normal appearance, no scleral icterus. Neck: full ROM Respiratory: no respiratory distress. Cardiovascular: normal rate and rhythm, S1, S2. GI/Abdominal: soft, nontender, no guarding. Extremities: full range of motion, nontender. Neurological: CN II-XII intact, intact motor, intact sensation. Psychiatric: normal mood. Skin: warm, normal color Constitutional Vitals: Vital Signs Temp Pulse Resp BP Pulse Ox 97.8 F 97 H 14 128/66 95 01/20/21 13:19 01/20/21 09:24 01/20/21 13:19 01/20/21 13:19 01/20/21 13:19 Period Temp Pulse Resp BP Sys/August Pulse Ox Last 24 Hr 97 F-98.9 F 91-110 - 93-144/52-98 88-98 Intake and Output 01/19/21 01/20/21 01/20/21 21:59 05:59 13:59 Intake Total 1650 50 1690 Output Total 1225 900 Balance 425 -850 1690 Weight 104.78 kg 104.78 kg Patient Weight 01/21/21 05:59 Weight 104.78 kg Intake & Output: Intake & Output 01/19/21 01/20/21 01/20/21 21:59 05:59 13:59 Intake Total 1650 50 1690 Output Total 1225 900 Balance 425 -850 1690 Weight 104.78 kg 104.78 kg Intake: IV 1050 50 1050 Sodium Chloride 0.9% 1,000 ml @ 1000 1000 100 mls/hr IV .Q10H [facility] Rx#: [id number] Zosyn 3.375 gm In Dextrose 5% 50 50 50 in Water 50 ml @ 100 mls/hr IV Q6H [facility] Rx#:[id number] Oral 600 640 Output: Urine Catheter Amount 425 900 Void Amount 800 Other: Meal Dinner Lunch Percent of Meal Consumed 100% 100% Urine Appearance Clear Urine Color Bright Yellow Bright Yellow OBJ DATA Labs CBC & Chem 7: 01/21/21 06:12 01/20/21 03:53 Labs: Abnormal Lab Results 01/20/21 01/20/21 01/19/21 03:53 03:53 06:30 WBC 15.3 H RBC 4.14 L Hgb 11.8 L Hct 37.0 L MCHC Neut % (Auto) 82.8 H Lymph % (Auto) 11.0 L Lymph # (Auto) [place] # (Auto) 0.91 H Absolute Neutrophils 12.67 H VBG Lactic Acid Anion Gap 5.0 L Glucose 110 H AST Alkaline Phosphatase 38 L Lactate Dehydrogenase 235 H Urine Appearance Urine Protein Urine Glucose (UA) Urine RBC Urine WBC Hyaline Casts Granular Casts Urine Mucus Urine Methadone Screen Suspect positive A U Marijuana (THC) Screen Suspect positive A 01/19/21 01/19/21 01/19/21 06:30 06:30 06:30 WBC 38.9 H* RBC Hgb Hct MCHC 29.7 L Neut % (Auto) 93.6 H Lymph % (Auto) 3.7 L Lymph # (Auto) 1.44 L [place] # (Auto) Absolute Neutrophils 36.39 H VBG Lactic Acid 4.1 H* Anion Gap Glucose 166 H AST 44 H Alkaline Phosphatase Lactate Dehydrogenase Urine Appearance Urine Protein Urine Glucose (UA) Urine RBC Urine WBC Hyaline Casts Granular Casts Urine Mucus Urine Methadone Screen U Marijuana (THC) Screen 01/19/21 06:26 WBC RBC Hgb Hct MCHC Neut % (Auto) Lymph % (Auto) Lymph # (Auto) [place] # (Auto) Absolute Neutrophils VBG Lactic Acid Anion Gap Glucose AST Alkaline Phosphatase Lactate Dehydrogenase Urine Appearance Hazy A Urine Protein 100 A Urine Glucose (UA) >=500 A Urine RBC 4 H Urine WBC 10 H Hyaline Casts 20 H Granular Casts 16 H Urine Mucus Few A Urine Methadone Screen U Marijuana (THC) Screen Meds: Medications Acetaminophen (Acetaminophen 325 Mg Tablet) 650 mg PO Q4-6HP PRN; Protocol PRN Reason: Per Pain Protocol/Fever > 101 Bisacodyl (Bisacodyl 10 Mg Supp.Rect) 10 mg [place] Q2-3DAYS PRN PRN Reason: Constipation Docusate Sodium (Docusate Sodium 100 Mg Capsule) 100 mg PO BID [facility] Guaifenesin/Codeine Phosphate (Guaifenesin/Codeine 10 Ml Udc) 10 ml PO Q4HP PRN PRN Reason: Cough Heparin Sodium (Porcine) (Heparin 5,000 Unit/Ml Vial) 5,000 unit SQ Q12 [facility] Magnesium Sulfate (Magnesium Sulfate) 2 gm in 50 mls @ 50 mls/hr IV UD PRN PRN Reason: MG = or < 1.7 Potassium Chloride 40 meq/ (Dextrose) 520 mls @ 130 mls/hr IV UD PRN PRN Reason: K+ = or < 3.5 Sodium Chloride (Sodium Chloride 0.9%) 1,000 mls @ 100 mls/hr IV .Q10H [facility] Last Admin: 01/20/21 10:19 Dose: 100 mls/hr Documented by: Acetaminophen (Ofirmev) 650 mg in 65 mls @ 130 mls/hr IV Q6HP PRN; Protocol PRN Reason: Per Pain Protocol/Fever > 101 Piperacillin Sod/Tazobactam (Sod 3.375 gm/ Dextrose) 50 mls @ 100 mls/hr IV Q6H [facility]; Protocol Last Admin: 01/20/21 11:42 Dose: 100 mls/hr Documented by: Iron Carb/Multivit/[place]/Folic Acid (Multivit,Ther Iron,Ca,Fa & Min 1 Tablet) 1 tab PO DAILY [facility] Melatonin (Melatonin 3 Mg Tablet) 3 mg PO HSP PRN PRN Reason: Insomnia Naloxone HCl (Naloxone Hcl 0.4 Mg/Ml Vial) 0.1 mg IV Q1HP PRN PRN Reason: Opiate Reversal Ondansetron HCl (Ondansetron 4 Mg Odt Tablet) 4 mg SL Q4-6HP PRN; Protocol PRN Reason: Nausea And Vomiting Ondansetron HCl (Ondansetron 4 Mg/2 Ml Vial) 4 mg IV Q4-6HP PRN; Protocol PRN Reason: Nausea And Vomiting Polyethylene Glycol (Polyethylene Glycol 3350 17 Gm Packet) 17 gm PO DAILYP PRN PRN Reason: Constipation Potassium Chloride (Potassium Chloride 20 Meq Packet) 40 meq PO DAILYP PRN PRN Reason: K+ < 3.5 Potassium/Phosphorus/Sodium (Neutra Phos 1 Packet) 2 packet PO DAILY PRN PRN Reason: PHOS <2.5 [place]/Docusate Sodium (Sennosides/Docusate Sodium 1 Tab Tablet) 1 tab PO HS [facility] Sodium Chloride (0.9 % Sodium Chloride 10 Ml Syringe) 10 ml IV Q8 [facility] A/P Narrative A/P Narrative: Assessment: 30-year-old male admitted for opioid overdose complicated acute hypoxic failure secondary to pneumonia. * Opioid overdose-gradually improved. Remains drowsy but no signs of respiratory depression. Status post Narcan. Counseled for cessation * Multifocal pneumonia possibly due to aspiration in the setting of opioid overdose. Clinically improving on antibiotic coverage/supportive treatment * Acute hypoxic respiratory failure now on 4 L oxygen. Gradually improving secondary to multifocal chest infiltrates * Severe sepsis clinically improving with white count down from 10,002 15.3 * Prophylaxis Heparin Plan * Transfer to medical floor * Continue antibiotic/aspiration precautions * wean oxygen as tolerated * Nutrition support * Case management to coordinate outpatient drug rehab resources and appointments Time Spent With Patient Time: Total time spent is greater than 50% in coordination of care (as documented) at patient's floor/unit and/or counseling patient: QUALITY VTE Deep Vein Thrombosis/Pulmonary Embolism Present on Admission: No
[2021-01-20] MEDS ORDERED: SENNOSIDES/DOCUSATE SODIUM 1 TAB TABLET PO SCH (21:00)
[2021-01-21] MEDS: PIPERACILLIN SODIUM/TAZOBACTAM 3.375 GM in DEXTROSE 5% IN WATER 50 ML IV SCH (05:08)
[2021-01-21] MEDS: 0.9 % SODIUM CHLORIDE 10 ML SYRINGE IV SCH (05:09)
[2021-01-21] MEDS ORDERED: cefTRIAXone 2 GM VIAL ONE (06:59)
[2021-01-21] MEDS ORDERED: cefTRIAXone 2 GM in DEXTROSE 5% IN WATER 50 ML IV SCH (07:00)
[2021-01-21 07:22] LABS: Basophils # (Auto) 0.04 K/mcL (0.00-0.20); Basophils % (Auto) 0.2 % (0.0-2.0); Eosinophils # (Auto) 0.18 K/mcL (0.00-0.70); Eosinophils % (Auto) 0.9 % (0.0-7.0); Hematocrit 41.8 % (41.0-55.0); Hemoglobin 13.1 g/dL (13.5-16.5); Lymphocytes # (Auto) 2.58 K/mcL (1.50-4.80); Lymphocytes % (Auto) 13.4 % (15.0-49.0); Mean Cell Volume 89.1 fL (80.0-100.0); Mean Corpuscular HGB Conc 31.3 g/dL (31.0-36.0); Mean Platelet Volume 10.3 fL (7.4-10.4); Monocytes # (Auto) 1.06 K/mcL (0.10-0.90); Monocytes % (Auto) 5.5 % (1.0-12.0); Platelet Count 350 K/mcL (140-440); RBC 4.69 M/mcL (4.50-5.90); Red Cell Distribution Width 13.8 % (11.5-14.5); WBC 19.2 K/mcL (4.5-11.0)
--- NOTE | 2021-01-21 07:31 | Discharge Summary ---
Discharge Provider Provider Patient information: Note initiated : 01/21/21 at 7:28 am Service Date, if different from initiated Date: [] Patient: Malcolm Ruiz 30 y/o M admitted on 01/19/21 for Overdose, SOB. Chief Complaint: [] Date of admission: 01/19/21 09:15 Discharge date: 01/21/21 Primary care physician: PCP No Discharge Meds Discharge Medications Home Medications amoxicillin-pot clavulanate [Augmentin] 1 tab PO BID 4 Days #8 tab 01/21/21 [Rx Last Taken Unknown] naloxone [Narcan] 4 mg INTRANASAL Q2M PRN #2 ea 01/21/21 [Rx Last Taken Unknown] COURSE Hospital Course Hospital course: Mr. Ruiz is a 30 year old M who lives with his and was discovered by his on the floor nearly unresponsive and agonal breathing with suspected opioid overdose. EMS was summoned and patient was started on Narcan with rapid improvement in mental status, he was brought into the ER and was in A. fib RVR responded to Cardizem. After initial resuscitation with crystalloids hospital service was consulted. Patient was noted to be profoundly hypoxic requiring 8 to 10 L oxygen/white count over 38,000. At the time of my evaluation patient is lethargic and drowsy. Currently on 8 L oxygen mask. In sinus rhythm. Was able to answer most of the question endorses to snorting 16 tabs of methadone. He remains tachycardic around 117. Repeat chest imaging shows severe bilateral aspiration pneumonitis. Antibiotics initiated, cultures drawn. Patient critically ill and admitted to ICU. No family numbers present Patient denies chest pain, fever but endorses diaphoresis/lightheadedness and shortness of breath 01/20 patient clinically improving. Improved lactate/white count. Hypoxia improving now 4 L oxygen this morning. Interval chest imaging bilateral pneumonia. Counseled on opioid cessation. Transfer to medical floor. 01/21 on room air, discharged to home on Augmentin to complete 5-7 days antibiotic treatment, nasal narcan prn and referral to addiction medicine clinic. Discharge diagnosis: Opioid overdose Secondary discharge diagnosis: Pneumonia likely secondary to aspiration Acute hypoxic respiratory failure Time Spent with Patient Time attestation: Total time spent providing and/or coordinating discharge services: EXAM Constitutional Vitals: Temp Pulse Resp BP Pulse Ox 99.6 F H 107 H 20 110/66 90 01/21/21 03:10 01/21/21 03:10 01/21/21 03:10 01/21/21 03:10 01/21/21 03:10 General appearance: cooperative Additional findings Additional findings: Head: Atraumatic, normal inspection. Eyes: normal appearance, no scleral icterus. Neck: full ROM Respiratory: no respiratory distress, bilateral rales. Cardiovascular: normal rate and rhythm, S1, S2. GI/Abdominal: soft, nontender, no guarding. Extremities: full range of motion, nontender. Neurological: CN II-XII intact, intact motor, intact sensation. Psychiatric: normal mood. Skin: warm, normal color Discharge Data Data Completed and Pending Labs on day of discharge: Labs from last 24 hours 01/21/21 01/21/21 06:12 06:12 WBC 19.2 H RBC 4.69 Hgb 13.1 L Hct 41.8 MCV 89.1 MCH 27.9 MCHC 31.3 RDW 13.8 Plt Count 350 MPV 10.3 Neut % (Auto) 80.0 H Lymph % (Auto) 13.4 L [place] % (Auto) 5.5 Eos % (Auto) 0.9 Baso % (Auto) 0.2 Lymph # (Auto) 2.58 [place] # (Auto) 1.06 H Eos # (Auto) 0.18 Baso # (Auto) 0.04 Absolute Neutrophils 15.38 H Sodium Pending Potassium Pending Chloride Pending Carbon Dioxide Pending Anion Gap Pending BUN Pending Creatinine Pending GFR Calculation Pending Glucose Pending Uric Acid Pending Calcium Pending Phosphorus Pending Magnesium Pending Total Bilirubin Pending Direct Bilirubin Pending GGT Pending AST Pending ALT Pending Alkaline Phosphatase Pending Lactate Dehydrogenase Pending Total Protein Pending Albumin Pending Globulin Pending Albumin/Globulin Ratio Pending Triglycerides Pending Preliminary micro results at discharge 01/19/21 06:40 Blood Culture - Preliminary Blood 01/19/21 06:30 Blood Culture - Preliminary Blood 01/19/21 06:26 - Preliminary Urine - Clean Void Mid-Stream Discharge Plan Patient/Caregiver Discharge Instructions Activity: increase activity as tolerated Prescriptions: New Narcan 4 mg/actuation spray,non-aerosol 4 mg intranasal Q2M PRN (Reason: opioid overdose) Qty: 2 RF: 2 amoxicillin-pot clavulanate [Augmentin] 875-125 mg tablet 1 tab PO BID 4 Days Qty: 8 RF: 0 Follow Up Plan Follow up with: Melissa Lemon DO [Physician] - (Follow up post hospitalization for opioid overdose. ) No,PCP [Primary Care Provider] - Patient Disposition: Home, Self-Care Prognosis: Serious Overall status at discharge: patient is progressing back to baseline Discharge Orders: Discharge Order (Routine); Ordered 01/21/21 Ordered By: Arnie BURNHAM VTE Deep Vein Thrombosis/Pulmonary Embolism Present on Admission: No
[2021-01-21] MEDS: 0.9 % SODIUM CHLORIDE 1,000 ML IV SCH (07:47)
[2021-01-21 08:09] LABS: ALT/SGPT 21 U/L (<40); AST/SGOT 19 U/L (<40); Albumin 3.9 gm/dL (3.2-5.2); Albumin/Globulin Ratio 1.3 (1.0-2.3); Alkaline Phosphatase 44 U/L (39-117); Bilirubin,Direct < 0.2 mg/dL (0-0.3); Bilirubin,Total 0.3 mg/dL (0.1-1.0); Blood Urea Nitrogen 9 mg/dL (6-20); Calcium 8.7 mg/dL (8.6-10.4); Carbon Dioxide 25 mmol/L (22-30); Chloride 103 mmol/L (96-108); Glomerular Filtration Rate 101; Glucose 83 mg/dL (70-105); Lactate Dehydrogenase 219 U/L (135-225); Phosphorous 1.7 mg/dL (2.5-4.5); Triglycerides 146 mg/dL (<150); Uric Acid 4.1 mg/dL (2.5-8.0)
--- NOTE | 2021-01-21 08:59 | XRay Report ---
HISTORY: Follow-up pulmonary infiltrates, recent methadone overdose FINDINGS: There are moderate alveolar infiltrates in both lungs with the greatest consolidation around the right lower hilum. There has been improvement bilaterally since 01/19/21. Lung volumes are normal. There is no pleural effusion. The heart size is normal. IMPRESSION: Improving bilateral pulmonary infiltrates Interpreted and Authenticated by: Ludwin Palacios 01/21/21
[2021-01-21] MEDS ORDERED: MULTIVIT,THER IRON,CA,FA & MIN 1 TABLET PO SCH (09:00)
[2021-01-21] MEDS: HEPARIN 5,000 UNIT/ML VIAL SQ SCH (09:48)
[2021-01-21] MEDS: DOCUSATE SODIUM 100 MG CAPSULE PO SCH (09:48)
[2021-01-29 22:36] LABS: Cannabinoid Confirmation Positive; Methadone Confirmation Positive
== END 2021-01-21 11:20 | disposition home or self-care (01) | DRG 917 ==
LOC: ED 05:54 → ICU 09:15 → MEDSUR 01-20 14:00
PROVIDERS: ADMIT Internal Medicine; ATTEND Emergency Medicine